=== PATIENT | female | born 1960 | race Caucasian/White ===

== ENCOUNTER 2020-08-02 11:56 | Outpatient (CLI) | payer BC, SELFPAY ==
--- NOTE | 2020-08-02 12:01 | MM_ITS ---
WS: [id number] Bilateral screening digital mammogram, 08/02/2020 Clinical Data: SCREENING Comparison: 07/23/2019, 06/04/2018, 05/06/2017, 04/17/2016, 03/15/2015, 05/26/2013, 08/10/2010, 08/30/2008, 08/27/2006. Findings: The breast parenchymal pattern shows fat replacement. No spiculated masses or clustered calcification s are seen. There are no secondary signs of carcinoma. MM/[place] [id number] Impression: 1. Negative bilateral mammogram unchanged. 2. Recommend annual screening mammograms. BIRADS: 1-Negative FOLLOW UP: 1 Year Follow-up The CAD template checker was used.
== END 2020-08-02 11:57 | disposition home or self-care (01) ==
LOC: RADSHAW 11:58
PROVIDERS: Family Provider Internal Medicine; PCP Internal Medicine; Visit Provider Internal Medicine
DX: Z12.31 Encounter for screening mammogram for malignant neoplasm of breast (principal)
CPT/HCPCS: 77067

== ENCOUNTER 2021-10-17 10:57 | Outpatient (CLI) | payer BC, SELFPAY ==
--- NOTE | 2021-10-17 11:05 | MM_ITS ---
WS: [id number] SCREENING DIGITAL MAMMOGRAM WITH CAD HISTORY: SCREENING COMPARISON: 08/02/2020, 07/23/2019 and 05/06/2017 Bilateral CC and MLO views submitted. Computer aided detection analyzed. Breast composition: There are scattered areas of fibroglandular density. Lobulated nodule measuring 6 mm in the upper-outer quadrant of the LEFT breast is new. Nearly isodense to the remaining breast ti ssue. There are additional small nodules and calcifications which are stable. MM/[place] [id number] IMPRESSION: BI-RADS: 0-Incomplete: Need additional imaging evaluation FOLLOW UP: Need Additional Imaging LEFT breast: Spot compression views (CC and MLO). True ML. Ultrasound to follow if abnormality persists.
== END 2021-10-17 10:58 | disposition home or self-care (01) ==
LOC: RADSHAW 11:01
PROVIDERS: Family Provider Internal Medicine; PCP Internal Medicine; Visit Provider Internal Medicine
DX: Z12.31 Encounter for screening mammogram for malignant neoplasm of breast (principal)
CPT/HCPCS: 77067

== ENCOUNTER 2021-11-16 09:19 | Outpatient (CLI) | payer BC, SELFPAY ==
--- NOTE | 2021-11-16 09:28 | MM_ITS ---
WS: [id number] LEFT 3D TOMOSYNTHESIS DIGITAL MAMMOGRAPHY WITH CAD CLINICAL INFORMATION: ABNORMAL MAMMO COMPARISON: October 17, 2021 TECHNIQUE: 4 views of the left breast were obtained. FINDINGS: Scattered fibroglandular densities of the left breast. Again seen is the lobulated nodule 6 mm in the upper outer quadrant LEFT breast. This is stable compared to October 17, 2021. Ultrasound is pendin g. ULTRASOUND BREAST LEFT TECHNIQUE: Ultrasound left breast focused area of concern. CLINICAL INFORMATION: ABNORMAL MAMMO COMPARISON: None. FINDINGS: Ultrasound LEFT breast the 12 to 3:00 position. No underlying parenchymal tissue. No cystic or solid lesions. No lesions to target for biopsy. MM/[place] [id number] IMPRESSION: BI-RADS: 2-Benign FOLLOW UP: 1 Year Follow-up Recommend return to annual screening mammography.
== END 2021-11-16 09:20 | disposition home or self-care (01) ==
PROVIDERS: PCP Internal Medicine; Visit Provider Internal Medicine
DX: R92.8 Other abnormal and inconclusive findings on diagnostic imaging of breast (principal)
CPT/HCPCS: 76642; 77061

== ENCOUNTER 2022-09-03 13:00 | Outpatient (CLI) | payer BC, SELFPAY | END 2022-09-03 13:01 | disposition home or self-care (01) | LOC: SLEEP 09-04 11:04 | PROVIDERS: PCP Internal Medicine; Visit Provider Internal Medicine | DX: G47.33 Obstructive sleep apnea (adult) (pediatric) | CPT/HCPCS: G0399 ==

== ENCOUNTER 2022-10-18 12:53 | Outpatient (CLI) | payer BC, SELFPAY ==
--- NOTE | 2022-10-18 13:16 | MM_ITS ---
WS: [id number] Bilateral screening 3D tomosynthesis digital mammogram, 10/18/2022 Clinical Data: SCREENING Comparison: 11/16/2021, 10/17/2021, 08/02/2020, 07/23/2019, 06/04/2018, 05/06/2017, 04/17/2016, 03/15/2015, , 08/22/2011, 08/10/2010, 08/30/2008, 08/27/2006. Findings: The breast parenchymal pattern shows fibroglandular tissue. No spiculated masses or clustered calcifi cations are seen. There are no secondary signs of carcinoma. MM/[place] [id number] Impression: 1. Negative bilateral mammogram unchanged. 2. Recommend annual screening mammograms. BIRADS: 1-Negative FOLLOW UP: 1 Year Follow-up The CAD electric distribution checker was used.
== END 2022-10-18 12:54 | disposition home or self-care (01) ==
PROVIDERS: PCP Internal Medicine; Visit Provider Internal Medicine
DX: Z12.31 Encounter for screening mammogram for malignant neoplasm of breast (principal)
CPT/HCPCS: 77063; 77067

== ENCOUNTER 2023-06-23 13:18 | Outpatient (CLI) | payer BC, SELFPAY ==
--- NOTE | 2023-06-23 13:33 | XR_ITS ---
WS: [id number] Exam: XR shoulder LT min 2V* [id number] Date/Time of Exam: 06/23/2023 1:50 PM Reason For Exam: PAIN IN L SHOULDER No acute fracture or dislocation. Soft tissue calcification along the greater tuberosity of the humer us that may be secondary to calcific tendinitis or bursitis. Mild degenerative changes involving the glenoid and humeral head. IMPRESSION1. No fracture or dislocation. 2. Soft tissue calcification suggesting calcific tendinitis and/or bursitis. Degenerative changes.
== END 2023-06-23 13:19 | disposition home or self-care (01) ==
PROVIDERS: PCP Internal Medicine; Visit Provider Internal Medicine
DX: M19.012 Primary osteoarthritis, left shoulder (principal); M25.512 Pain in left shoulder
CPT/HCPCS: 73030

== ENCOUNTER 2023-10-30 13:30 | Outpatient (CLI) | payer BC, SELFPAY ==
--- NOTE | 2023-10-30 13:30 | MM_ITS ---
WS: [id number] BILATERAL 3D TOMOSYNTHESIS DIGITAL SCREENING MAMMOGRAPHY WITH CAD CLINICAL INFORMATION: SCREENING HISTORY: Screening mammogram. No current complaints. COMPARISON: 2022 TECHNIQUE: Bilateral CC and MLO views. FINDINGS: Scattered fibroglandular densities bilaterally. No suspicious focal mass, asymmetry, calcifications, or architectural distortion. No evidence of malignancy. Incidental punctate calcifications. IMPRESSION: MM/[place] [id number] BI-RADS: 2-Benign FOLLOW UP: 1 Year Follow-up Recommend return to annual screening mammography.
== END 2023-10-30 13:31 | disposition home or self-care (01) ==
LOC: MOBLMAM 13:34
PROVIDERS: PCP Internal Medicine; Visit Provider Internal Medicine
DX: Z12.31 Encounter for screening mammogram for malignant neoplasm of breast (principal)
CPT/HCPCS: 77063; 77067

== ENCOUNTER 2024-04-21 13:37 | Outpatient (CLI) | payer BC, SELFPAY ==
--- NOTE | 2024-04-21 13:43 | XR_ITS ---
WS: [id number] Left knee, 4 views, 04/21/2024 Clinical Data: PAIN IN L KNEE Comparison: None. Findings: No fractures or dislocations are seen. There is minimal narrowing of the medial joint compartment. Th e posterior left patella shows mild irregularity. There are prominent anterior patellar spurs. The so ft tissues are unremarkable. XR/XR knee LT 4V [id number] Impression: Minimal medial joint compartment narrowing and posterior left patella irregular ity. Kellgren-Ignacio Classification: grade 1 (doubtful): doubtful joint space narr owing and possible osteophytic lipping
== END 2024-04-21 13:38 | disposition home or self-care (01) ==
LOC: RAD 13:40
PROVIDERS: PCP Internal Medicine; Visit Provider Internal Medicine
DX: M25.562 Pain in left knee (principal)
CPT/HCPCS: 73564

== ENCOUNTER → 2024-04-26 12:54 | Outpatient (BNVA) | payer BC, SELFPAY | PROVIDERS: PCP Internal Medicine; Visit Provider Nurse Practitioner | DX: M25.562 Pain in left knee; S83.207A Unspecified tear of unspecified meniscus, current injury, left knee, initial encounter; M25.362 Other instability, left knee; X58.XXXA Exposure to other specified factors, initial encounter | CPT/HCPCS: 73560; 73565 ==

== ENCOUNTER 2024-04-27 08:35 | Outpatient (CLI) | payer BC, SELFPAY | END 2024-04-27 08:36 | disposition home or self-care (01) | LOC: SPT 08:38 | PROVIDERS: PCP Internal Medicine; Visit Provider Nurse Practitioner | DX: Z46.89 Encounter for fitting and adjustment of other specified devices (principal); M25.562 Pain in left knee | CPT/HCPCS: L1812 ==

== ENCOUNTER 2024-11-11 13:08 | Outpatient (CLI) | payer BC, SELFPAY ==
--- NOTE | 2024-11-11 13:14 | MM_ITS ---
WS: [id number] Bilateral screening 3D tomosynthesis digital mammogram, 11/11/2024 1:17 PM Clinical Data: SCREENING Comparison: 10/30/2023, 10/18/2022, 11/16/2021, 10/17/2021, 08/02/2020. Findings: No spiculated masses or clustered calcifications are seen. There are no secondary signs of carcinoma. MM/MM scr BI tomosynthesis [id number] Impression: Negative bilateral mammogram unchanged. Recommend annual screening mammograms. BIRADS: 1 - Negative. FOLLOW UP: 1 Year Follow-up DENSITY: There are scattered areas of fibroglandular density. The CAD frequency checker was used
== END 2024-11-11 13:09 | disposition home or self-care (01) ==
PROVIDERS: PCP Internal Medicine; Visit Provider Internal Medicine
DX: Z12.31 Encounter for screening mammogram for malignant neoplasm of breast (principal); R92.323 Mammographic fibroglandular density, bilateral breasts
CPT/HCPCS: 77063; 77067

== ENCOUNTER 2025-04-29 10:42 | Outpatient (CLI) | payer BC, SELFPAY ==
--- NOTE | 2025-04-29 10:45 | USCV_ITS ---
Gris John Age: 64 Gender: F : 1960 Exam Date: 04/29/2025 11:02 Ordering Phys: Ramon Casas DPM Technologist: NGA Exam Location: [facility] [place] Indication: left leg swelling HISTORY: Lower extremity swelling-LEFT PROCEDURES: Venous duplex imaging was performed in only the left lower extremity. The following venous structures were evaluated: common femoral vein, profunda vein, proximal portion of the greater saphenous vein, superficial femoral vein, and the popliteal vein. In addition, the posterior tibial and peroneal trunk were evaluated. FINDINGS: Examination was technically limited due to body habitus. Normal 2-D Doppler and augmentation and compressibility throughout the lower extremity venous structures. Additional imaging through the proximal calf veins also reveals no thrombus. Limited evaluation of the greater saphenous vein is patent with no thrombus. CONCLUSIONS No evidence of left lower extremity DVT. Camron Ac MD (Electronically Signed) Final Date: 29 April 2025 13:35 S
== END 2025-04-29 10:43 | disposition home or self-care (01) ==
LOC: RAD 10:44
PROVIDERS: PCP Internal Medicine; Visit Provider Podiatrist Foot & Ankle Surgery
DX: I87.2 Venous insufficiency (chronic) (peripheral) (principal)
CPT/HCPCS: 93971